=== PATIENT | female | born 1995 | race Caucasian/White ===

== ENCOUNTER 2017-06-16 23:02 | Emergency (ER) | payer BC ==
[2017-06-16] MEDS ORDERED: Ciprofloxacin 500 MG Tab PO ONE (23:03)
[2017-06-16] MEDS ORDERED: Phenazopyridine 95 MG Tab PO ONE (23:03)
[2017-06-16 23:18] VITALS: BP 148/78
[2017-06-16] MEDS ORDERED: Ciprofloxacin 500 MG Tab ONE (23:38)
[2017-06-16] MEDS ORDERED: Phenazopyridine 95 MG Tab ONE (23:38)
--- NOTE | 2017-06-16 23:58 | EDM.PDOC ---
ED HPI GENERAL MEDICAL PROBLEM - General Chief Complaint: Genitourinary Problem Stated Complaint: POSSIBLE UTI [id number] Time Seen by Provider: 06/16/17 23:15 Source of Information: Reports: Patient History Limitations: Reports: No Limitations - History of Present Illness INITIAL COMMENTS - FREE TEXT/NARRATIVE: Ed ambulatory with c/o urinary frequency and burning with urination Onset: Today Severity: Moderate Perineal Area Pain Score (Numeric/FACES): 8 - Related Data Allergies Allergy/AdvReac Type Severity Reaction Status Date / Time No Known Allergies Allergy Verified 06/16/17 23:18 Home Meds: Home Meds Amitriptyline [Elavil] 1 tab PO DAILY 12/16/15 [History] Norgestimate-Ethinyl Estradiol [Tri-Previfem Tablet] 1 tab PO DAILY 12/16/15 [ History] Past Medical History - Past Health History Medical/Surgical History: Denies Medical/Surgical History HEENT History: Reports: Impaired Vision Neurological History: Reports: Migraines Social & Family History - Family History Family Medical History: Noncontributory - Tobacco Use Smoking Status *Q: Never Smoker Second Hand Smoke Exposure: No - Caffeine Use Caffeine Use: Reports: None - Recreational Drug Use Recreational Drug Use: No ED ROS GENERAL - Review of Systems Review Of Systems: See Below Constitutional: Reports: No Symptoms HEENT: Reports: No Symptoms Respiratory: Reports: No Symptoms Cardiovascular: Reports: No Symptoms GI/Abdominal: Reports: No Symptoms : Reports: Dysuria, Flank Pain, Frequency, Pain, Urgency Skin: Reports: No Symptoms Neurological: Reports: No Symptoms ED EXAM, RENAL/ - Physical Exam Exam: See Below Exam Limited By: No Limitations General Appearance: Alert, Mild Distress Eye Exam: Bilateral Eye: EOMI Ears: Normal External Exam Nose: Normal Inspection Throat/Mouth: Normal Inspection Head: Atraumatic, Normocephalic Neck: Normal Inspection, Full Range of Motion Respiratory/Chest: No Respiratory Distress, Lungs Clear, Normal Breath Sounds, No Accessory Muscle Use Cardiovascular: Normal Peripheral Pulses, Regular Rate, Rhythm GI/Abdominal: Normal Bowel Sounds Back Exam: CVA Tenderness (R) Extremities: Normal Inspection Neurological: Alert, Oriented, Normal Cognition Psychiatric: Normal Affect Skin Exam: Warm, Dry, Intact, Normal Color Course - Vital Signs Last Recorded V/S: Last Vital Signs Temp 97.7 F 06/16/17 23:08 Pulse 82 11/20/17 23:08 Resp 14 06/16/17 23:08 BP 148/78 H 06/16/17 23:08 Pulse Ox 100 06/16/17 23:08 - Orders/Labs/Meds Orders: Active Orders 24 hr Category Date Time Status CULTURE URINE [RM] Stat Lab 06/16/17 23:08 Received Labs: Laboratory Tests 06/16/17 Range/Units 23:08 Urine Color Yellow (YELLOW) Urine Appearance Turbid (CLEAR) Urine pH 5.5 (5.0-9.0) Ur Specific [place] >= 1.030 (1.005-1.030) Urine Protein >=300 H (NEGATIVE) Urine Glucose (UA) Negative (NEGATIVE) Urine Ketones Trace H (NEGATIVE) Urine Occult Blood Moderate H (NEGATIVE) Urine Nitrite Negative (NEGATIVE) Urine Bilirubin Negative (NEGATIVE) Urine Urobilinogen 0.2 (0.2-1.0) mg/dL Ur Leukocyte Esterase Small H (NEGATIVE) Urine RBC 75-100 H /HPF Urine WBC 50-75 H (0-5/HPF) /HPF Ur Epithelial Cells Moderate H /HPF Amorphous Sediment Rare (0/HPF) /HPF Urine Bacteria Few (0-FEW/HPF) /HPF Urine Mucus Few H /LPF Meds: Medications Discontinued Medications Generic Name Dose Route Start Last Admin Trade Name Mannie PRN Reason Stop Dose Admin Ciprofloxacin Confirm 06/16/17 23:38 06/16/17 23:44 Ciprofloxacin Hcl Administered 06/16/17 23:39 Not Given Dose 1,000 mg .ROUTE .STK-MED ONE Phenazopyridine HCl Confirm 06/16/17 23:38 06/16/17 23:45 Urinary Pain Relief Administered 06/16/17 23:39 Not Given Dose 380 mg .ROUTE .STK-MED ONE Departure - Departure Time of Disposition: 23:47 Disposition: Home, Self-Care 01 Condition: Good Clinical Impression: UTI, Urinary tract infectious disease - Discharge Information Instructions: Urinary Tract Infection, Adult, [id number] Referrals: PCP,None [Primary Care Provider] - Forms: ED Department Discharge Additional Instructions: increase fluids cipro 500mg one twice daily for one week pyridium 195mg every 8 hours as needed for urinary burning follow up if symptoms worsen - My Orders Last 24 Hours: My Active Orders 06/16/17 23:08 CULTURE URINE [RM] Stat - Assessment/Plan Last 24 Hours: My Active Orders 06/16/17 23:08 CULTURE URINE [RM] Stat
== END 2017-06-16 23:59 | disposition home or self-care (01) ==
LOC: DL.ED 23:02
DX: N39.0 Urinary tract infection, site not specified (principal); Z79.899 Other long term (current) drug therapy
CPT/HCPCS: 81001; 87086; 99283; A9270; 87088; 87186